=== PATIENT | male | born 1985 ===

== ENCOUNTER 2016-12-22 11:29 | Emergency (ER) | payer MEDICAID ==
[2016-12-22 11:35] VITALS: RESP 18; O2SAT 100
[2016-12-22] MEDS ORDERED: Sodium Chloride 0.9% 1,000 ML IV ONE (12:05)
--- NOTE | 2016-12-22 12:13 | C.PDOC ---
History Of Present Illness Patient is a 31 y/o male, with PMHx of diverticulitis, that presents to the ED for evaluation of abdominal pain for the last 3 days. Pt states his symptoms "feel like diverticulitis." Otherwise, denies any fever, chills, n/v/d, or any other associated symptoms at this time. Time Seen by Provider: 12/22/16 11:54 Chief Complaint (Nursing): Abdominal Pain History Per: Patient History/Exam Limitations: no limitations Onset/Duration Of Symptoms: Days (3) Current Symptoms Are (Timing): Still Present Radiation Of Pain To:: None Quality Of Discomfort: "Pain" Associated Symptoms: denies: Fever, Chills, Nausea, Vomiting, Diarrhea, Loss Of Appetite, Back Pain, Chest Pain, Constipation, Urinary Symptoms Exacerbating Factors: None Alleviating Factors: None Recent travel outside of the [place]: No Additional History Per: Patient Past Medical History Reviewed: Historical Data, Nursing Documentation, Vital Signs Vital Signs: Last Vital Signs Temp 98.0 F 12/22/16 14:27 Pulse 69 12/22/16 14:27 Resp 18 12/22/16 14:27 BP 95/63 L 12/22/16 14:27 Pulse Ox 100 12/22/16 15:56 - Medical History PMH: Diverticulitis Surgical History: Appendectomy Family History: States: No Known Family Hx - Social History Hx Alcohol Use: No Hx Substance Use: Yes Review Of Systems Except As Marked, All Systems Reviewed And Found Negative. Constitutional: Negative for: Fever, Chills Gastrointestinal: Positive for: Abdominal Pain. Negative for: Nausea, Vomiting , Diarrhea Genitourinary: Negative for: Dysuria, Frequency, Hematuria Musculoskeletal: Negative for: Back Pain Physical Exam - Physical Exam Appears: Non-toxic, No Acute Distress Skin: Normal Color, Warm, Dry Head: Atraumatic, Normacephalic Eye(s): bilateral: Normal Inspection, EOMI Neck: Normal ROM, Supple Chest: Symmetrical, No Tenderness Cardiovascular: Rhythm Regular, No Murmur Respiratory: Normal Breath Sounds, No Rales, No Rhonchi, No Wheezing Gastrointestinal/Abdominal: Soft, Tenderness (suprapubic, and LLQ), No Distention, No Guarding, No Rebound Extremity: Normal ROM Neurological/Psych: Oriented x3, Normal Speech ED Course And Treatment - Laboratory Results Result Diagrams: 12/22/16 12:35 12/22/16 12:35 O2 Sat by Pulse Oximetry: 100 (on RA) Pulse Ox Interpretation: Normal - CT Scan/US Abd Pelvis CT Other Rad Studies (CT/US): Read By Radiologist, Radiology Report Reviewed CT/US Interpretation: FINDINGS: LOWER THORAX: Unremarkable. LIVER: Unremarkable. No gross lesion or ductal dilatation. GALLBLADDER AND BILE DUCTS : Unremarkable. PANCREAS: Unremarkable. No gross lesion or ductal dilatation. SPLEEN: Unremarkable. ADRENALS: Unremarkable. No mass. KIDNEYS AND URETERS: Unremarkable. No hydronephrosis. No solid mass. VASCULATURE: Unremarkable. No aortic aneurysm. BOWEL: There is some diverticulosis of the sigmoid colon with some mural thickening. There is no obvious diverticulitis. Clinical correlation is suggested. Lack of abdominal fat and oral contrast material limit the evaluation of the colon. APPENDIX: No evidence of appendicitis. PERITONEUM: Unremarkable. No free fluid. No free air. LYMPH NODES: Unremarkable. No enlarged lymph nodes. BLADDER: Unremarkable. REPRODUCTIVE: Unremarkable. BONES: No acute fracture. OTHER FINDINGS: None. IMPRESSION: Diverticulosis of the sigmoid colon with some mural thickening. No obvious diverticulitis. See comments Progress Note: Labs, Abd & pelvis CT ordered and reviewed. Pt was given IV fluids, Toradol, and Zofran in the ER. On re-exam, patient is resting comfortably, no significant distress. Abdomen remains soft. Medical Decision Making Medical Decision Making: r/o diverticulitis- labs imaging pending 300: pt reassesedL mild luekocytosis. ct equivocal for diverticulitis. pt with symptoms consistent with diverticulitis, stable for outpt trial. pt in bed in nad, listening to ipod. abd soft minimal ttp. states feels well to go home Disposition - Disposition Referrals: Kamar Kramer MD [Staff Provider] - Disposition: HOME/ ROUTINE Disposition Time: 15:04 Condition: STABLE Additional Instructions: please follow up with your doctor. return to er with worsening symptoms or concerns. please see specialist. Prescriptions: Ciprofloxacin HCl [Cipro] 500 mg PO BID #14 tab metroNIDAZOLE [Flagyl] 500 mg PO TID #21 tab Naproxen 500 mg PO BID PRN #14 tab PRN Reason: Pain, Mild (1-3) Instructions: Diverticulitis (DC), Acute Abdominal Pain (ED) - Clinical Impression Clinical Impression: Diverticulitis - Scribe Statement The provider has reviewed the documentation as recorded by the Mustaphaibe Cody Joe Provider Attestation: All medical record entries made by the Ramon were at my direction and personally dictated by me. I have reviewed the chart and agree that the record accurately reflects my personal performance of the history, physical exam, medical decision making, and the department course for this patient. I have also personally directed, reviewed, and agree with the discharge instructions and disposition.
[2016-12-22] MEDS ORDERED: Sodium Chloride 0.9% 1,000 ML ONE (12:22)
[2016-12-22 12:47] LABS: BASO % 0.2 % (0.0-2.0); EOS # 0.1 K/uL (0.0-0.7); EOS % 0.6 % (0.0-4.0); HEMATOCRIT 42.2 % (35.0-51.0); LYMPH # 1.9 K/uL (1.0-4.3); LYMPH % 16.6 % (20.0-40.0); MEAN CELL VOLUME 95.4 fL (80.0-94.0); MEAN CORPUSCULAR HEMOGLOBIN 32.4 pg (27.0-31.0); MEAN CORPUSCULAR HGB CONC 33.9 g/dL (33.0-37.0); MEAN PLATELET VOLUME 8.5 fL (7.2-11.7); MONO % 8.5 % (0.0-10.0); RED CELL DISTRIBUTION WIDTH 13.1 % (11.5-14.5); WHITE BLOOD COUNT 11.6 K/uL (4.8-10.8)
[2016-12-22 12:51] LABS: RBC URINE 2 /hpf (0-3); URINE BILIRUBIN NEGATIVE (NEGATIVE); URINE BLOOD NEGATIVE (NEGATIVE); URINE COLOR Yellow (YELLOW); URINE GLUCOSE (UA) NORMAL (Normal); URINE KETONE NEGATIVE (NEGATIVE); URINE LEUKOCYTE ESTERASE NEG Leu/uL (Negative); URINE PROTEIN NEGATIVE (NEGATIVE); URINE UROBILINOGEN NORMAL mg/dL (0.2-1.0); WBC URINE 1 /hpf (0-5)
[2016-12-22 13:01] LABS: CHLORIDE 104 mmol/L (98-107); POTASSIUM 4.1 mmol/L (3.6-5.2); SODIUM 137 mmol/L (132-148)
[2016-12-22 13:04] LABS: ALB/GLOB RATIO 1.3 (1.0-2.1); ALKALINE PHOSPHATASE 59 U/L (38-126); AST/SGOT 17 U/L (17-59); BILIRUBIN,TOTAL 0.9 mg/dL (0.2-1.3); BLOOD UREA NITROGEN 13 mg/dL (9-20); CALCIUM 8.7 mg/dl (8.6-10.4); CARBON DIOXIDE 21 mmol/L (22-30); GFR AFRICAN-AMERICAN > 60; GLUCOSE,RANDOM 91 mg/dL (75-110); TOTAL PROTEIN 7.3 g/dL (6.3-8.3)
[2016-12-22 13:05] LABS: ALT/SGPT < 6 U/L (21-72)
[2016-12-22 13:51] LABS: INR 1.3
[2016-12-22] MEDS ORDERED: Iodixanol 320 MG/ML 100 ML BOTTLE IV ONE (13:52)
[2016-12-22 14:27] VITALS: BP 95/63; PULSE 69; TEMP 98
--- NOTE | 2016-12-22 15:00 | CT ---
PROCEDURE: CT Abdomen and Pelvis with contrast HISTORY: abd pain COMPARISON: None. TECHNIQUE: Contrast dose: 100 cc of Visipaque Radiation dose: Total exam DLP = 370 mGy-cm. This CT exam was performed using one or more of the following dose reduction techniques: Automated exposure control, adjustment of the mA and/or kV according to patient size, and/or use of iterative reconstruction technique. FINDINGS: LOWER THORAX: Unremarkable. LIVER: Unremarkable. No gross lesion or ductal dilatation. GALLBLADDER AND BILE DUCTS: Unremarkable. PANCREAS: Unremarkable. No gross lesion or ductal dilatation. SPLEEN: Unremarkable. ADRENALS: Unremarkable. No mass. KIDNEYS AND URETERS: Unremarkable. No hydronephrosis. No solid mass. VASCULATURE: Unremarkable. No aortic aneurysm. BOWEL: There is some diverticulosis of the sigmoid colon with some mural thickening. There is no obvious diverticulitis. Clinical correlation is suggested. Lack of abdominal fat and oral contrast material limit the evaluation of the colon. APPENDIX: No evidence of appendicitis PERITONEUM: Unremarkable. No free fluid. No free air. LYMPH NODES: Unremarkable. No enlarged lymph nodes. BLADDER: Unremarkable. REPRODUCTIVE: Unremarkable. BONES: No acute fracture. OTHER FINDINGS: None. IMPRESSION: Diverticulosis of the sigmoid colon with some mural thickening. No obvious diverticulitis. See comments
== END 2016-12-22 15:26 | disposition home or self-care (01) ==
LOC: MERGE 11:29 → C.ER 11:29
DX: K57.92 Diverticulitis of intestine, part unspecified, without perforation or abscess without bleeding (principal)
CPT/HCPCS: 74177; 80053; 81001; 83690; 85025; 85610; 85730; 96361; 96374; 96375; 99285; J1885; J2405; J7040; Q9967

== ENCOUNTER 2017-01-22 09:05 | Emergency (ER) | payer MEDICAID ==
[2017-01-22 09:19] VITALS: BP 109/72; PULSE 94; RESP 18; TEMP 97.9; O2SAT 100
--- NOTE | 2017-01-22 09:45 | C.PDOC ---
History Of Present Illness A 31 y/o male with a Hx of diverticulitis, had surgery done at [facility] [place], [place] for a perforated viscus on 01/01/17. Patient states he saw his surgeon last week and had his guanaco removed and notices purulent drainage at the lower aspect of the incision and today noticed "blisters". Patient denies fever, chills, nausea , vomiting, pain to the area, headache, chest pain, SOB, diarrhea, or any other complaints. Time Seen by Provider: 01/22/17 09:23 Chief Complaint (Nursing): Abnormal Skin Integrity History Per: Patient History/Exam Limitations: no limitations Onset/Duration Of Symptoms: Days Current Symptoms Are (Timing): Still Present Quality Of Symptoms: Draining Severity: Mild Additional History Per: Patient Past Medical History Reviewed: Historical Data, Nursing Documentation, Vital Signs Vital Signs: Last Vital Signs Temp 97.9 F 01/22/17 09:14 Pulse 94 H 01/22/17 09:14 Resp 18 01/22/17 09:57 BP 109/72 01/22/17 09:14 Pulse Ox 100 01/22/17 11:01 - Medical History PMH: Diverticulitis Surgical History: Appendectomy Family History: States: Unknown Family Hx - Social History Hx Alcohol Use: No Hx Substance Use: Yes Review Of Systems Except As Marked, All Systems Reviewed And Found Negative. Constitutional: Negative for: Fever, Chills, Other (Pain to the area) Cardiovascular: Negative for: Chest Pain Respiratory: Negative for: Shortness of Breath Gastrointestinal: Negative for: Nausea, Vomiting, Diarrhea Skin: Positive for: Other (Purulent drainage at the lower aspect of the surgical incision) Neurological: Negative for: Headache Physical Exam - Physical Exam Appears: Non-toxic, No Acute Distress Skin: Warm, Dry Head: Atraumatic, Normacephalic Chest: No Tenderness Respiratory: Normal Breath Sounds, No Accessory Muscle Use, No Rales, No Rhonchi , No Wheezing Gastrointestinal/Abdominal: Soft, No Tenderness, Other (10 cm incision of the midline abdomen with fluid collection at the base of the incision. NO redness, warmth, or discharge. Colostomy bag right of the incision, that appears clean. ) Neurological/Psych: Oriented x3, Normal Speech, Normal Cognition ED Course And Treatment O2 Sat by Pulse Oximetry: 100 (RA) Pulse Ox Interpretation: Normal Medical Decision Making Medical Decision Making: Impression: A 31 y/o male here for purulent drainage at the lower aspect of the incision s/p surgery Plans: -Needle aspiration -Reassess Needle aspiration Procedure: Area of fluid collection cleaned. Fluid collection done. 4cc of serosanguineous fluids removed. Pressure and dressing applied to the area. Pt is in no acute distress and appears well. Pt was discharge and was instructed to follow up with surgeon as soon as possible. Disposition Counseled Patient/Family Regarding: Need For Followup - Disposition Disposition: HOME/ ROUTINE Disposition Time: 09:43 Condition: STABLE Additional Instructions: Follow up with your surgeon as soon as possible. Forms: General Discharge Instructions - Clinical Impression Clinical Impression: Fluid collection at surgical site - Scribe Statement The provider has reviewed the documentation as recorded by the Scribe Eloina alvarez All medical record entries made by the Scribe were at my direction and personally dictated by me. I have reviewed the chart and agree that the record accurately reflects my personal performance of the history, physical exam, medical decision making, and the department course for this patient. I have also personally directed, reviewed, and agree with the discharge instructions and disposition.
== END 2017-01-22 09:57 | disposition home or self-care (01) ==
LOC: C.ER 09:05
DX: L76.82 Other postprocedural complications of skin and subcutaneous tissue (principal); S30.821A Blister (nonthermal) of abdominal wall, initial encounter; X58.XXXA Exposure to other specified factors, initial encounter; Z93.3 Colostomy status